=== PATIENT | male | born 1980 | race Caucasian/White ===

== ENCOUNTER → 2019-06-29 | Emergency (ER) | payer OTHER ==
[~2019-06-29] VITALS: Ht 177.8 cm; Wt 70.3 kg
[~2019-06-29] MED LIST: DEXTROSE 10% 250 ML IV SCH; NACL 0.9% 1,000 ML IV ONE
[2019-06-29 22:36] VITALS: BP 143/90
[2019-06-29 23:20] LABS: BASOPHILS # (AUTO) 0.1 K/uL (0.00-0.22); EOSINOPHILS # (AUTO) 0.3 K/uL (0-0.4); LYMPHOCYTES # (AUTO) 2.4 K/uL (2.0-11.5); MONOCYTES # (AUTO) 0.8 K/uL (0.8-1.0); WHITE BLOOD COUNT (AUTO) 8.5 K/uL (4.8-10.8)
[2019-06-29 23:25] LABS: BASOPHILS % (AUTO) 0.8 % (0.0-2.0); EOSINOPHILS % (AUTO) 3.6 % (0.0-4.0); HEMATOCRIT 51.2 % (36-52); HEMOGLOBIN 17.1 g/dL (12.0-18.0); LYMPHOCYTES % (AUTO) 28.2 % (20.5-51.1); MEAN CORPUSCULAR HEMOGLOBIN 32 pg (27-31); MEAN CORPUSCULAR HGB CONC 34 g/dL (33-37); MEAN CORPUSCULAR VOLUME 94.6 fL (80-94); MONOCYTES % (AUTO) 9.3 % (1.7-9.3); NEUTROPHILS # (AUTO) 4.9 K/uL (1.8-7.7); NEUTROPHILS % (AUTO) 58.1 % (42.2-75.2); PLATELET COUNT (AUTO) 537 K/uL (140-450); RED BLOOD CELL COUNT(AUTO) 5.42 MIL/uL (4.20-6.10); RED CELL DISTRIBUTION WIDTH 14.3 % (11.6-13.7)
[2019-06-29 23:35] LABS: ANION GAP 15.1 (8-16); BARBITURATE, URINE NEG. ng/ml (NEG <=200); BENZODIAZEPINE, URINE NEG. ng/mL (NEG <=200); CANNABINOID, URINE NEG. ng/mL (NEG <=50); CARBON DIOXIDE 26.4 mmol/L (21-32); CHLORIDE 109 mmol/L (98-107); COCAINE, URINE NEG. ng/mL (NEG <=300); CREATININE 0.8 mg/dL (0.7-1.3); GFR ARICAN-AMERICAN 142 mL/min (>90); GLUCOSE 81 mg/dL (74-106); OPIATE, URINE NEG. ng/mL (NEG <=2000); PHENCYCLIDINE SCREEN,URINE NEG. ng/mL (NEG <=25); POTASSIUM 3.5 mmol/L (3.5-5.1); SODIUM SERUM 147 mmol/L (136-145); UREA NITROGEN, BLOOD 11 mg/dL (7-18)
[2019-06-29 23:37] LABS: PROTHROMBIN TIME 8.6 secs (10.8-13.4)
[2019-06-29 23:43] LABS: ALBUMIN 4.3 g/dL (3.4-5.0); ASPARTATE AMINOTRANSFERASE 108 U/L (15-37); TOTAL BILIRUBIN 0.2 mg/dL (0.0-1.0)
[2019-06-29 23:46] LABS: ACETAMINOPHEN < 0.5 ug/ml (10-30); SALICYLATE < 2.8 mg/dL (2.8-20.0)
[2019-06-30 06:10] VITALS: BP 114/60
== END | disposition home or self-care (01) ==
LOC: MED 22:36 → EDBD 22:36
DX: F10.129 Alcohol abuse with intoxication, unspecified (principal); Y90.8 Blood alcohol level of 240 mg/100 ml or more
CPT/HCPCS: 36415; 80053; 80305; 85025; 85610; 96360; 99283; G0480; G0482; J7030

== ENCOUNTER 2021-07-02 19:27 | Emergency (ER) | payer MEDICAID, OTHER ==
[~2021-07-02] VITALS: Ht 177.8 cm; Wt 81.6 kg
[2021-07-02 19:46] VITALS: BP 141/77
--- NOTE | 2021-07-02 19:49 | NUR ---
TO LOBBY A/W BED AMBULATORY
--- NOTE | 2021-07-02 20:01 | NUR ---
PT RETURN FROM RADIOLOGY TO LOBBY
--- NOTE | 2021-07-02 21:05 | NUR ---
PT TAKEN TO CHAIR A
--- NOTE | 2021-07-02 21:30 | NUR ---
41 Y/O MALE C/O WEAKNESS AND FATIGUE X1 WEEK. PT REPORTS SMOKING CIGARETTES AND CIGARS THROUGHOUT THE DAY. PT C/O COUGH AND CONGESTION. PT A/O X4 WITH EVEN AND UNLABORED RESPIRATIONS. PT EDUCATED ON THE IMPORTANCE OF SMOKING CENSATION. PMH:DENIES NKDA
--- NOTE | 2021-07-02 21:44 | NUR ---
DR MORA EVALUATING AT THIS TIME
[2021-07-02] MEDS ORDERED: predniSONE 20 MG TAB PO ONE (21:50)
[2021-07-02] MEDS ORDERED: PRED20TA5 PO (21:52)
--- NOTE | 2021-07-02 22:13 | NUR ---
Patient discharged with v/s stable. Written and verbal after care instructions ABOUT UPPER RESPIRATORY INFECTION given and explained. Patient alert, oriented and verbalized understanding of instructions. Ambulatory with steady gait. All questions addressed prior to discharge. ID band removed. Patient advised to follow up with PMD. Rx of PREDNISONE given. Patient educated on indication of medication including possible reaction and side effects. Opportunity to ask questions provided and answered.
== END 2021-07-02 22:13 | disposition home or self-care (01) ==
LOC: MED 19:27
DX: J06.9 Acute upper respiratory infection, unspecified (principal)
CPT/HCPCS: 71045; 99283; J7512